=== PATIENT | female | born 1975 | race Caucasian/White ===

== ENCOUNTER 2024-02-13 01:31 | Day surgery (SDC) | payer OTHER, SELFPAY ==
[2024-01-30 12:58] VITALS: BMI 35.4
[2024-02-13 08:53] VITALS: BP 138/71; PULSE 96; RESP 20; TEMP 36.4; O2SAT 100; BMI 34.2
[2024-02-13] MEDS: LACTATED RINGERS 1,000 ML 150 ML IV CONT ×2 (09:10→11:28)
--- NOTE | 2024-02-13 10:01 | WPDANESEPPF ---
Anes - Initial Pre Proc Eval Procedure: Operation Date: 02/13/24 10:00 Proposed Procedures p Esophagogastroduodenoscopy & Colonoscopy - Robel Laird MD Date/Time: 02/13/24 10:01 Surgeon: Robel Laird MD Pre Op Diagnosis: hemorrhage of anus/rectum, dysphagia Patient Data Age: 48 Gender: F Height: 1.75 m Weight: 105.1 kg Last Vital Signs Temp 97.6 F 02/13/24 08:53 Pulse 96 02/13/24 08:53 Resp 20 02/13/24 08:53 BP 138/71 02/13/24 08:53 Pulse Ox 100 02/13/24 08:53 O2 Del Method Room Air 02/13/24 08:53 Allergies Allergy/AdvReac Type Severity Reaction Status Date / Time No Known Allergies Allergy Verified 02/13/24 08:52 Home Medications Medication Instructions Recorded Confirmed Type atorvastatin 10 mg tablet 10 mg PO DAILY 01/30/24 02/13/24 History pantoprazole 40 mg tablet,delayed 40 mg PO DAILY 01/30/24 02/13/24 History release topiramate 50 mg tablet 50 mg PO DAILY PRN MIGRAINES 01/30/24 02/13/24 History Patient hx anesthesia problems: none Family hx anesthesia problems: none Results Review: All pre-operative results and documents have been reviewed as part of the pre-operative evaluation. [facility] Social History Social History Smoking status: Never smoker Alcohol intake: never Substance use: never Substance use type: does not use Living arrangements: with family Spiritual care concerns: No Anes - Eval Final PreProcedure Day of Procedure 02/13/24 10:01 Patient weight: normal Heart: regular rate and rhythm Lungs: clear to auscultation Airway: Mallampati scale class II Neurological: alert and oriented Last oral intake: >/= 8 hours ASA classification: II Emergent: no Anesthetic plan: proceed Anesthesia type and monitoring: general GIVS and standard monitoring Results Review: All pre-operative results and documents have been reviewed as part of the pre-operative evaluation. Hyperlipidemia, dysphagia. Informed Consent: The patient's anesthetic plan and its attendant risks and benefits were discussed with the patient/family/POA. Questions were solicited and answers provided to the satisfaction of the patient/family/POA.
--- NOTE | 2024-02-13 10:40 | PM.IMHP ---
H&P: HPI History of Present Illness Date/Time: 02/13/24 10:40 Chief Complaint: Dysphagia- colon cancer screening. Narrative: This patient has been suffering from intermittent dysphagia exclusively with solid foods for at least 2 years. She denies nausea, vomiting, chest pain or heartburn episodes. In addition, she is due for her 1st screening colonoscopy. Review of Systems Review of Systems: All systems reviewed & are unremarkable except as noted in HPI and below PMFSH Social History Social History Smoking status: Never smoker Alcohol intake: never Substance use: never Substance use type: does not use Living arrangements: with family Spiritual care concerns: No Meds Home Medications and Allergies Home Medications Medication Instructions Recorded Confirmed Type atorvastatin 10 mg tablet 10 mg PO DAILY 01/30/24 02/13/24 History pantoprazole 40 mg tablet,delayed 40 mg PO DAILY 01/30/24 02/13/24 History release topiramate 50 mg tablet 50 mg PO DAILY PRN MIGRAINES 01/30/24 02/13/24 History Allergies Allergy/AdvReac Type Severity Reaction Status Date / Time No Known Allergies Allergy Verified 02/13/24 08:52 Vital Signs Vital Signs - 24 hr 02/13/24 08:53 Temperature 97.6 F Pulse Rate 96 Respiratory Rate 20 Blood Pressure 138/71 Pulse Oximetry 100 Oxygen Delivery Room Air Assessment and Plan Assessment and plan (1) Dysphagia: Code(s): R13.10 - Dysphagia, unspecified Status: Acute Assessment and Plan: The patient is deemed a good candidate for the procedures, both EGD and colonoscopy. Differential diagnosis includes Schatzki's ring, EoE vs motility disorders of the esophagus. Will take esophageal biopsies. Consent signed. Will proceed. (2) Screening for malignant neoplasm of colon: Code(s): Z12.11 - Encounter for screening for malignant neoplasm of colon Status: Acute
--- NOTE | 2024-02-13 11:09 | SUR.OPER ---
EGD: [id number] COLON: [id number]
[2024-02-13 11:31] VITALS: BP 114/77; PULSE 87; RESP 23; O2SAT 98
[2024-02-13] MEDS: SIMETHICONE ORAL SUSPENSION 20 MG/0.3 ML 30 ML BOTTLE 0.6 ML IRRIGATION (11:31)
[2024-02-13 11:41] VITALS: BP 141/96; PULSE 84; RESP 14; O2SAT 100
[2024-02-13 11:51] VITALS: BP 138/98; PULSE 82; RESP 20; O2SAT 98
== END 2024-02-13 12:00 | disposition home or self-care (01) ==
PROVIDERS: PCP Internal Medicine; Referring Provider Internal Medicine; Visit Provider Internal Medicine Gastroenterology
PROC: 0DJ08ZZ Inspection of Upper Intestinal Tract, Via Natural or Artificial Opening Endoscopic (ICD-10-PCS; CPT 43235; principal; 2024-02-13 10:00)
DX: Z12.11 Encounter for screening for malignant neoplasm of colon (principal); K22.2 Esophageal obstruction; K31.7 Polyp of stomach and duodenum; K44.9 Diaphragmatic hernia without obstruction or gangrene
CPT/HCPCS: 43249; 45378; 88305; C1726; J2003; J2704; J7120

== ENCOUNTER 2024-11-20 12:41 | Outpatient (CLI) | payer OTHER, SELFPAY ==
--- NOTE | 2024-11-20 12:30 | ECG_ITS ---
Test Date: 2024-11-20 13:10:07 Measurements Intervals [place] Rate: 86 P: 49 TX: 140 QRS: 3 QRSD: 90 T: 13 QT: 360 QTc: 431 Interpretive Statements SINUS RHYTHM DELAYED PRECORDIAL R/S TRANSITION BASELINE ARTIFACT- I, II, III, AVR, AVL, AVF, V1-V6 BORDERLINE ECG No previous ECG available for comparison Electronically Signed On 11-21-2024 06:29:00 CDT by Edmar Pinto D.O.
--- OUTSIDE RECORDS SUMMARY | 2024-11-20 12:46 | XMS_ITS | Continuity of Care Document ---
Author Organization [facility] Address [address] [place] [address] [place] [address] Phone Care Team Providers Care Horticultural Technical Officer Name Role Phone Kam Graf DO Unavailable Unavailable Advance Directives Directive Yes / No Effective Date File Name No Information Encounters Encounter Description Practice Location Reason(s) For Visit Diagnoses Date Provider Providers Copied on Encounter [facility], [id number] [place] [address] [address], [place], [place], [id number], [place] tel:[phone] [facility] No Information Homar Villegas. [address] [place], [address], [place]. tel: [phone] Family History Family Member Type Diagnosis Age At Onset No Information Payers Payer name Insurance type Covered libertarian ID Authoriza tion(s) Medicaid [facility], [facility] [id number] Social History Type Description Quantity Date Captured Comments Sex Female Smoking Status No Information Chief Complaint And Reason For Visit No Information Reason For Referral Reason For Referral No Information History Of Present Illness Encounter Date Complaint History Of Prese nt Illness No Information Functional Status Date Functional Assessmen t No Information Instructions Date Instruction Additional Infor mation No Information Assessments Type Assessment Date No Information Patient Care Teams Name Effective Dates (start - stop) Status Members No Information
== END 2024-11-20 12:42 | disposition home or self-care (01) ==
LOC: ANHSURGERY 12:43
PROVIDERS: PCP Internal Medicine; Visit Provider Obstetrics & Gynecology
DX: E78.5 Hyperlipidemia, unspecified (principal); N99.85 Post endometrial ablation syndrome
CPT/HCPCS: 36415; 86850; 86900; 86901; 93005

== ENCOUNTER 2024-11-24 00:50 | Day surgery (SDC) | payer OTHER, SELFPAY ==
[2024-11-19 10:00] VITALS: BMI 32.7
--- NOTE | 2024-11-19 10:07 | PC.NURSE ---
Report to the Outpatient Waiting Room, entrance under the green pavilion located off [facility], at time _0800_ on date _[id number]_. Planned Procedure Time: _1000_.? Time changes happen often and if your time is changed the preop area will call you the afternoon before. - You and your visitor will be asked to self-screen and do not enter if you have any COVID symptoms. Please call surgeon if you need to reschedule. - A mask is optional within the hospital at this time. Patients may have clear liquids (water, carbonated beverages, clear teas, apple juice) until 3 hours prior to surgery with a maximum of 20 ounces. - No food from midnight until time of surgery and no smoking, or chewing tobacco (or any form of nicotine). No chewing gum, candy or mints. Take only the following medications with a SIP of water on the morning of surgery: __None DO NOT STOP ANY OF YOUR OTHER PRESCRIPTION MEDICATIONS PRIOR TO SURGERY EXCEPT THE FOLLOWING Hold all vitamins and supplements for 3 days per anesthesiologist. Medications to discontinue per physician Date to take last mgfi__[id number]___ Please no make-up, nail gambian, hairspray, perfume, deodorant, or body powder the day of surgery.? No jewelry (including any body piercings) or valuables the day of surgery, leave them at home.? Please take a shower or bath the night before, or the morning of, surgery with an antibacterial soap.? Wear comfortable, loose fitting clothing.? - Jewelry must be removed prior to entering the operating room.? Rings and piercings that are not removed may be cut off. - The hospital will not accept responsibility for valuables.? - Please leave all valuables, including medications, at home the day of surgery. If you are going home after surgery, a licensed pharmacy delivery driver must drive you home.? - NO public transportation without another adult if you receive anesthesia. - We recommend that an adult stay with you for 24 hours following discharge. - We also recommend that you do not drive, make important decision, drink alcoholic beverages, or take any drugs that were not prescribed by your health care provider for at least 24 hours after your discharge time. Follow any additional instructions given to you from your surgeon. Telephone instructions given to __Tracy___and asked if any additional questions and then verbalized understanding. Patient advised to call surgeon office or pre surgery nurse liaison [phone] if any additional questions.
--- NOTE | 2024-11-23 16:09 | P.HP_ITS ---
H&P: HPI History of Present Illness Date/Time: 11/23/24 16:09 Chief Complaint: AUB Narrative: Kadie is a 49yo [id number], who presents for surgery. She has a h/o ablation, myomectomy, BTL and LEEP all in the past (different times). She reports her cycles have been very irregular since her ablation 15yrs ago. She reports over the last few years though, she spots for a few days, then stops for about a week, then has a normal red blood period and then spots for close to another week after that. She reports cramping during the times of spotting and severe pain during the red blood period. She has to take midol or ibuprofen every 3 hours during the heavier bleeding. She has tried OCPS in the past but it only makes her migraines more severe. She is ready to be done with this pain and bleeding and is interested in a hysterectomy. The OCPs also caused a yeast infection for 6 months straight. She denies any vaginal issues now. She denies any breast issues. She is sexually active w/o issue. She reports a normal h/o pap smears since her leep which is almost 20 years ago. She denies any menopausal symptoms except decreased libido. Normal pap smear 09/2024. [employer] [facility] 10/2024 was normal except for a small fibroid. Review of Systems Constitutional: Constitutional: Denies chills, Denies fever(s) and Denies headache(s) Eyes: Eyes: Denies change in vision ENT: Denies dizziness and Denies headache(s) Cardiovascular: Cardiovascular: Denies chest pain and Denies dyspnea Respiratory: Respiratory: Denies cough and Denies dyspnea Gastrointestinal: Gastrointestinal: Denies abdominal pain and Denies change in stool character Genitourinary: Genitourinary: Reports abnormal menses, Reports pelvic pain, Denies vaginal discharge, Denies vaginal odor and Denies vaginal pruritus Neurologic: Denies dizziness and Denies headache(s) Psychiatric: Psychiatric: Denies anxiety and Denies depression [facility] Past Medical History Medical History (Updated 10/16/24 @ 09:59 by Patty Valle MD) Hyperlipidemia Headache, migraine GERD (gastroesophageal reflux disease) Surgical History Surgical History (Updated 10/16/24 @ 09:17 by Dakota Montero MA) Normal colonoscopy 2024 H/O endoscopy History of endometrial ablation Previous section History of hysterosalpingogram fibroid removal at same time H/O LEEP 1999 Family History Family History (Updated 10/16/24 @ 09:18 by Dakota Montero MA) Grandparent Non Hodgkin's lymphoma Diabetes mellitus Hypertension Heart disease Mother Gallbladder disorder Diabetes mellitus Hypertension Father Diabetes mellitus Social History Social History (Updated 10/16/24 @ 09:19 by Dakota Montero MA) Smoking status: Never smoker Alcohol intake: never Substance use: current Substance use type: marijuana Other substance usage details: rare Do You Feel Safe in your Home?: Yes Lack of Transportation: No Lack of Food: Never True Current Housing: I Have Housing Concerned About Future Housing: No Difficulty Paying Gas/Electric Bills: No Difficulty Paying for Meds: No Currently Unemployed: No Education: Master's Degree or Higher Difficulty w/ Childcare or Family Care: No Living arrangements: with family Occupation/Education: occupation Additional occupation/education comments: [employer] Gender identity (if verbalized by the patient): Female Sexual Orientation (if Verbalized by the Patient): Straight or Heterosexual Spiritual care concerns: No Meds Home Medications and Allergies Home Medications ?Medication ?Instructions ?Recorded ?Confirmed ?Type atorvastatin 10 mg tablet 10 mg PO DAILY 01/30/24 11/19/24 History pantoprazole 40 mg tablet,delayed 40 mg PO DAILY 01/30/24 11/19/24 History release topiramate 50 mg tablet 50 mg PO DAILY PRN MIGRAINES 01/30/24 11/19/24 History famotidine 10 mg tablet 10 mg PO DAILY 04/01/24 11/19/24 History multivitamin 1 tablet PO DAILY 10/16/24 11/19/24 History phentermine 37.5 mg tablet 37.5 mg PO DAILY 10/16/24 11/19/24 History Allergies Allergy/AdvReac Type Severity Reaction Status Date / Time No Known Allergies Allergy Verified 11/19/24 09:58 Exam Const: General: cooperative, healthy appearing, comfortable and no acute distress Orientation/consciousness: patient oriented x3 Resp: Effort & Inspection: normal respiratory effort Cardio: Rate: regular rate GI: Inspection: normal to inspection GI Palp: No abdominal tenderness and Yes Soft to palpation : Other: deferred to OR Skin: General skin exam: normal color Neuro: General: patient oriented x3 Extrem: General: normal to inspection Psych: Appearance: grossly normal Affect: normal affect Attitude: cooperative Assessment and Plan Assessment and plan (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 - I have also discussed the recommended time off and natural course of healing/downtime
[2024-11-24] VITALS (13 sets, daily range): BP systolic 104–153; BP diastolic 54–103; PULSE 85–100; RESP 10–18; TEMP 35.8–36.6; O2SAT 93–100
--- NOTE | 2024-11-24 07:08 | WPDHPUPDATE1 ---
History and Physical Update Update Date/Time: 11/24/24 07:08 History and Physical has been reviewed, including an updated exam of the patient. There are NO changes in the patient's condition. Risks, benefits, and alternatives have been discussed and questions answered. Patient agrees to proceed with robotic assisted total laparoscopic hysterectomy with bilateral salpingectomy and cystoscopy.
[2024-11-24 08:20] LABS: BEDSIDEPREGUCG Negative (Negative)
--- NOTE | 2024-11-24 08:28 | WPDANESEPPF ---
Anes - Initial Pre Proc Eval Procedure: Operation Date: 11/24/24 10:00 Proposed Procedures p Robotic Assisted Total Laparoscopic Hysterectomy with Bilateral Salpingectomy - Patty Valle MD s Cystoscopy - Patty Valle MD Date/Time: 11/24/24 08:28 Surgeon: Patty Valle MD Pre Op Diagnosis: post endometrial ablation syndrome Patient Data Age: 49 Gender: F Height: 1.75 m Weight: 101.2 kg Allergies Allergy/AdvReac Type Severity Reaction Status Date / Time No Known Allergies Allergy Verified 11/24/24 08:11 Home Medications ?Medication ?Instructions ?Recorded ?Confirmed ?Type atorvastatin 10 mg tablet 10 mg PO DAILY 01/30/24 11/24/24 History pantoprazole 40 mg tablet,delayed 40 mg PO DAILY 01/30/24 11/24/24 History release topiramate 50 mg tablet 50 mg PO DAILY PRN MIGRAINES 01/30/24 11/24/24 History famotidine 10 mg tablet 10 mg PO DAILY 04/01/24 11/24/24 History multivitamin 1 tablet PO DAILY 10/16/24 11/24/24 History phentermine 37.5 mg tablet 37.5 mg PO DAILY 10/16/24 11/24/24 History Laboratory Tests 11/24/24 08:18 POC Urine HCG, Qual Negative (Negative) Patient hx anesthesia problems: none Family hx anesthesia problems: none Results Review: All pre-operative results and documents have been reviewed as part of the pre-operative evaluation. [facility] Past Medical History Medical History (Updated 11/24/24 @ 08:15 by Rafa Healy DO) Depression Anxiety Hyperlipidemia GERD (gastroesophageal reflux disease) Headache, migraine Surgical History Surgical History (Updated 10/16/24 @ 09:17 by Dakota Montero MA) Normal colonoscopy 2023 H/O endoscopy History of endometrial ablation History of hysterosalpingogram fibroid removal at same time Previous section H/O LEEP 1999 Family History Family History (Updated 10/16/24 @ 09:18 by Dakota Montero MA) Grandparent Non Hodgkin's lymphoma Diabetes mellitus Hypertension Heart disease Mother Gallbladder disorder Diabetes mellitus Hypertension Father Diabetes mellitus Social History Social History (Updated 10/16/24 @ 09:19 by Dakota Montero MA) Smoking status: Never smoker Alcohol intake: never Substance use: current Substance use type: marijuana Other substance usage details: rare Do You Feel Safe in your Home?: Yes Lack of Transportation: No Lack of Food: Never True Current Housing: I Have Housing Concerned About Future Housing: No Difficulty Paying Gas/Electric Bills: No Difficulty Paying for Meds: No Currently Unemployed: No Education: Master's Degree or Higher Difficulty w/ Childcare or Family Care: No Living arrangements: with family Occupation/Education: occupation Additional occupation/education comments: [employer] Gender identity (if verbalized by the patient): Female Sexual Orientation (if Verbalized by the Patient): Straight or Heterosexual Spiritual care concerns: No Anes - Eval Final PreProcedure Day of Procedure 11/24/24 08:28 Patient weight: obese Heart: regular rate and rhythm Lungs: clear to auscultation Airway: Mallampati scale class III Neurological: alert and oriented Last oral intake: >/= 8 hours ASA classification: III Emergent: no Anesthetic plan: proceed Anesthesia type and monitoring: general ETT and standard monitoring Results Review: All pre-operative results and documents have been reviewed as part of the pre-operative evaluation. Informed Consent: The patient's anesthetic plan and its attendant risks and benefits were discussed with the patient/family/POA. Questions were solicited and answers provided to the satisfaction of the patient/family/POA.
[2024-11-24] MEDS: LACTATED RINGERS 1,000 ML 30 ML IV CONT ×2 (08:33→12:49)
[2024-11-24] MEDS: ACETAMINOPHEN 500 MG TABLET 1000 MG PO ×3 (09:17→22:40)
[2024-11-24] MEDS: KETOROLAC 15 MG/ML VIAL (*BKC) IV PUSH (09:20)
--- NOTE | 2024-11-24 10:17 | SUR.PREOP ---
PATIENT UPDATED ON TIME DELAY
[2024-11-24] MEDS: ceFAZolin 2 GM in SODIUM CHLORIDE 0.9% IV 50 ML 100 ML IVPB (10:37)
[2024-11-24] MEDS: metroNIDAZOLE 500 MG/ISO 100ML 500 MG/100 ML BAG 100 MG IVPB (11:00)
[2024-11-24] MEDS: BUPIVACAINE/EPINEPHRINE 0.5% 50 ML VIAL 30 ML INFILTRATE (11:34)
--- NOTE | 2024-11-24 11:48 | S_PTH ---
PATIENT: Kadie [place] LOC: [facility] U#:[id number] AGE/SX: 49/F ROOM: RE11/24/[address]: Patty Valle MD : 1975 BED: DIS: 11/25/2024 SPEC #: [id number] RECD: 11/24/24 13:21 STATUS: ERICA REQ #: [id number] ASMITA: 11/24/24 11:[address]: Patty Valle DEPT: [facility] Surgical RECD BY: Elise Diaz ENTERED: 11/24/24 13:21 SP TYPE: Surgical OTHR DR: Сергей Neely, Tissues: A - Uterus Procedures: Hematoxylin and Eosin Stain Gross and Microscopic Level 5
--- NOTE | 2024-11-24 12:43 | P.OP_ITS ---
Procedure Note - Detailed Date of Procedure 11/24/24 Pre-op Diagnosis post endometrial ablation syndrome fibroid uterus Post-op Diagnosis Same Procedure Performed Robotic assisted total laparoscopic hysterectomy with left salpingectomy and cystoscopy. Surgeon Patty Valle MD Anesthesia General and Local (12cc of 0.5% marcaine with epi) Findings Uterus sounded to 7cm, cervix 3cm. Anterior fibroid; ~3-4cm. H/o BTL. Normal left ovary and normal partial left tube. Right adnexal cyst; simple appearing; bowel adhered to adnexal/pelvic side wall (no obvious tube noted). Normal bladder w/o defects or masses; bilateral ureteral efflux. Uterus/cervix: 174.4g Description of Procedure Kadie was taken to the operating room where she was placed under general anesthesia without issues. She received 2 g Ancef and 500mg Metronidazole. She was then prepped and draped in the usual sterile fashion in the dorsal lithotomy position with her legs in low Andi stirrups, her arms tucked at her side, with a strap over her chest. A time-out was performed. My attention was turned down below where a pinto catheter was placed. A bivalve speculum was placed within the vagina. The cervix was easily identified and the anterior lip of the cervix was grasped with single-tooth tenaculum. The uterus was then sounded to 7cm. The cervix was serially dilated to allow for the MEGAN uterine manipulator; which was placed w/o issue (6cm tip with 3cm cervical ring). My gl oves were changed and attention was then turned to the abdomen. A 5 mm trocar was placed under direct visualization at Underwood's point without issue. Once intra-abdominal placement was confirmed, the abdomen was insufflated with carbon dioxide gas. An abdominal survey was performed and the above findings were noted. Two additional ports were placed on the right and left side and the camera port was placed supraumbilical under direct visualization without issues. The 5mm port was switched out for the accessory port under direct visualization. The patient was then placed in deep Trendelenburg, with the legs slightly lowered. The robot was then docked. The instruments were placed intra- abdominally under direct visualization. I then un-scrubbed and went to the robotic console. I then started my hysterectomy on the right side. The ureter was easily identified transperitoneally and well out of the surgical field. The bowel adhesions to the right adnexal were carefully taken down (thin, filmy adhesions). The right ovary was still adhered to the pelvic side wall; no obvious fallopian tube segment was visualized. The round ligament was clamped, coagulated, and transected. The uterine ovarian artery was then serially clamped, coagulated, and transected with good hemostasis. The broad ligament was then dissected anteriorly and posteriorly skeletonizing the uterine artery. The bladder flap was then developed on the right side and carried around the left, anteriorly. The uterine artery was then serially clamped and coagulated. Once the vessel was adequately coagulated, it was then transected with good hemostasis. The same procedure was then performed on the left side without complications. The uterus was noted to be devascularized. The bladder flap was verified out of the surgical field and the colpotomy was started anteriorly and continued in a clockwise fashion until the uterus was released. The uterus was removed from the abdomen via the vagina without complications. The vaginal cuff had small bleeders that were made hemostatic without complications. The vaginal cuff was then reapproximated using a 0 V lock suture. The pelvis was then irrigated and suctioned free of all clots and debris. Surgicel powder was then placed over the raw edges/pedicles. Good hemostasis was noted. The left fallopian tube was elevated and the mesosalpinx was coagulated and transected until the tube was freed and removed from the abdomen. All instruments were removed from the abdomen and the robot was undocked. I then scrubbed back in and verified that the cuff was intact without any defects. The Pinto catheter was then removed. The cystoscope was placed within the bladder, which filled without difficulty. Bilateral ureteral efflux was noted. The bladder was examined and no defects or abnormalities were visualized. The bladder was drained. The cystoscope was removed. The pinto catheter was replaced under aseptic technique. The 4 laparoscopic incisions were reapproximated using 4-0 Monocryl and covered with Dermabond. The laparoscopic incisions were infiltrated with local anesthesia for better pain control. Sponge, lap, instrument, and needle counts were correct at the end the procedure. Patient was awoken from general anesthesia and taken to recovery in a stable conditions with plans of overnight stay. Estimated Blood Loss 100 IV Fluids 1,300 Urine Output 300 Pathology Yes (uterus, cervix, left fallopian tubes) Complications No immediate complications Condition Stable Disposition Floor [facility] Billing Surgery - Charge Forward: Surgery Billing
--- NOTE | 2024-11-24 14:28 | PC.NURSE ---
This patient, Kadie [place], was received from PACU on 11/24/24 at 1422. Patient/family oriented to unit policies and routines
[2024-11-24] MEDS: DEXTROSE 5%/LACTATED RINGERS 1,000 ML 125 ML IV CONT (14:49)
[2024-11-24] MEDS: SIMETHICONE 80 MG TAB.CHEW PO (14:55)
[2024-11-24] MEDS: ONDANSETRON INJ 4 MG/2 ML VIAL IV PUSH (14:55)
[2024-11-24] MEDS: KETOROLAC 30 MG/ML VIAL (*BKC) IV PUSH ×2 (17:01→22:41)
[2024-11-24] MEDS: DOCUSATE SODIUM 100 MG CAPSULE PO (17:01)
[2024-11-24] MEDS: PROMETHAZINE HCL 25 MG/ML AMPUL 12.5 MG IV PUSH (18:00)
[2024-11-25 03:59] VITALS: BP 122/76; PULSE 85; RESP 18; TEMP 36.4; O2SAT 99
[2024-11-25] MEDS: ACETAMINOPHEN 500 MG TABLET 1000 MG PO (04:47)
[2024-11-25] MEDS: KETOROLAC 30 MG/ML VIAL (*BKC) IV PUSH (04:47)
[2024-11-25 06:03] LABS: Hematocrit 38.5 % (37.0-47.0); Hemoglobin 12.1 g/dL (12.0-15.0); Immature Granulocyte Percent A 0.6 % (0-0.5); Lymphocytes Absolute Auto 1.32 K/mm3 (0.9-3.2); Mean Corpuscular HGB Conc 31.4 g/dl (32-36); Mean Corpuscular Hemoglobin 27.3 pg (26-34); Mean Corpuscular Volume 86.7 fl (80-100); Nucleated Red Blood Cells Absolute Auto 0.000 K/mm3 (0.0-0.012); Nucleated Red Blood Cells Perc 0.0 % (0.0-0.2); Platelet Count Result 208 k/mm3 (150-375); Red Blood Count 4.44 M/mm3 (4.2-5.4); White Blood Count 19.4 K/mm3 (4.5-10.0)
[2024-11-25 06:15] LABS: Anion Gap 8 mmol/L (4-12); Blood Urea Nitrogen 10 mg/dL (7-17); Calcium 9.4 mg/dL (8.4-10.2); Carbon Dioxide 22 mmol/L (22-30); Chloride 109 mmol/L (98-107); Estimated CRCL calculation 104 ml/min; Estimated Glomerular Filt Rate > 60; Glucose 108 mg/dL (65-110); Potassium 3.8 mmol/L (3.4-5.0); Sodium 139 mmol/L (137-145)
--- NOTE | 2024-11-25 06:53 | P.PNOB_ITS ---
[facility] - A/P Assessment and plan (1) S/P laparoscopic hysterectomy: Code(s): Z90.710 - Acquired absence of both cervix and uterus Status: Acute Postoperative Procedures: Procedures Operation Date: 11/24/24 10:00 Actual Procedure Side Surgeon p Robotic Assisted Total Laparoscopic Hysterectomy with Left Salpingectomy Left Patty Valle MD s Cystoscopy Not Applicable Patty Valle MD Postoperative day: 1 Postoperative status: doing well Postoperative plan: routine post-op care and discharge Time Spent With Patient Time: Total time spent is greater than 50% in coordination of care (as documented) at patient's floor/unit and/or counseling patient: Time with patient: less than 15 minutes [facility]- PN:Subj Post-Op Subjective Date/time seen: 11/25/24 07:10 Interval history: POD#1 Kadie reports doing well today. No issues overnight. Her pain is controlled with PO meds. She has tolerated regular diet, but had multiple episodes of N/V after surgery (phenergan helped). She denies any vaginal bleeding. She has voided. She has passed flatus. She has ambulated and denies any symptoms of anemia. Review of Systems 2 Review of Systems: All systems reviewed & are unremarkable except as noted in HPI and below (HPI) Constitutional: Constitutional: Denies chills, Denies fever(s) and Denies headache(s) Eyes: Eyes: Denies change in vision ENT: Denies dizziness and Denies headache(s) Cardiovascular: Cardiovascular: Denies chest pain and Denies rapid heart rate Respiratory: Respiratory: Denies cough Genitourinary: Genitourinary: Denies abnormal vaginal bleeding Neurologic: Denies dizziness and Denies headache(s) Exam 2 Const: General: cooperative, healthy appearing, comfortable and no acute distress Orientation/consciousness: patient oriented x3 Resp: Effort & Inspection: normal respiratory effort Auscultation: clear to auscultation bilaterally Cardio: Rate: regular rate GI: Inspection: normal to inspection and incision ( LSC incisions c/d/i) GI Palp: Yes abdominal tenderness (appropriate) and Yes Soft to palpation A uscultation: normal bowel sounds : Other: normal bleeding on pad Skin: General skin exam: normal color Neuro: General: patient oriented x3 Psych: Appearance: grossly normal Affect: normal affect Attitude: c ooperative [facility] - PN: Obj Data Vital Signs Vital Signs: Vital Signs - 24 hr 11/24/24 08:10 11/24/24 12:49 11/24/24 13:05 Temperature 97.6 F 97.4 F L Pulse Rate 100 92 91 Respiratory Rate 18 12 12 Blood Pressure 152/103 H 109/70 104/54 L Pulse Oximetry 97 99 99 Oxygen Delivery Room Air Simple Face Mask Simple Face Mask Oxygen Flow Rate 8 8 11/24/24 13:20 11/24/24 13:35 11/24/24 13:50 Temperature Pulse Rate 91 89 85 Respiratory Rate 12 12 12 Blood Pressure 104/59 L 105/58 L 108/64 Pulse Oximetry 95 97 94 Oxygen Delivery Room Air Room Air Room Air Oxygen Flow Rate 11/24/24 14:05 11/24/24 14:30 Temperature 96.5 F L Pulse Rate 98 90 Respiratory Rate 18 12 Blood Pressure 111/61 126/77 Pulse Oximetry 94 93 Oxygen Delivery Room Air Oxygen Flow Rate Intake/Output Intake/Output: Intake & Output 11/21/24 11/22/24 11/23/24 11/24/24 23:59 23:59 23:59 23:59 Intake Total 3150 Output Total 530 Balance 2620 Meds/Results Medications: Active Medications Generic Name Dose Route Start Last Admin Trade Name Freq PRN Reason Stop Dose Admin Acetaminophen 1,000 mg 11/24/24 18:00 Acetaminophen 500 Mg Tablet PO Q6HR [facility] Atorvastatin Calcium 10 mg 11/25/24 09:00 Atorvastatin 10 Mg Tablet PO DAILY [facility] Docusate Sodium 100 mg 11/24/24 17:00 Docusate Sodium 100 Mg Capsule PO BID [facility] Famotidine 10 mg 11/25/24 09:00 Famotidine 10 Mg Tablet PO DAILY [facility] Hydromorphone HCl 0.5 mg 11/24/24 14:14 Hydromorphone Hcl Inj (*Crx) 1 Mg/Ml Syr IV PUSH Q2H PRN Breakthrough Pain Rated 4-6 or NPO Dextrose/Lactated Ringer's 1,000 mls @ 125 mls/hr 11/24/24 14:14 Dextrose 5%/Lactated Ringers IV CONT .Q8H [facility] Ibuprofen 600 mg 11/25/24 12:00 Ibuprofen 600 Mg Tablet PO Q6HR [facility] Ketorolac Tromethamine 30 mg 11/24/24 18:00 Ketorolac 30 Mg/Ml Vial (*Bkc) IV PUSH 11/25/24 06:01 Q6HR [facility] Multivitamins Therapeutic 1 tablet 11/25/24 09:00 Multivitamins Therapeutic Tab (*Bkc) PO DAILY [facility] Naloxone HCl 0.1 mg 11/24/24 14:14 Naloxone Hcl 0.4 Mg/Ml Vial IV PUSH Q2M PRN Respiratory rate less than 10 Ondansetron HCl 4 mg 11/24/24 14:14 Ondansetron Inj 4 Mg/2 Ml Vial IV PUSH Q6H PRN Nausea And Vomiting Oxycodone HCl 5 mg 11/24/24 14:14 Oxycodone Hcl (*Crx) 5 Mg Tab Ir PO Q4H PRN Pain Rated 4-6 Oxycodone HCl 10 mg 11/24/24 14:14 Oxycodone Hcl (*Crx) 5 Mg Tab Ir PO Q6H PRN Pain Rated 7-10 Pantoprazole Sodium 40 mg 11/25/24 09:00 Pantoprazole 40 Mg Tablet PO DAILY [facility] Simethicone 80 mg 11/24/24 17:00 Simethicone 80 Mg Tab.Chew PO TIDWM [facility] Topiramate 50 mg 11/24/24 14:14 Topiramate 25 Mg Tablet PO DAILY [facility]N [facility] Labs 11/25/24 04:53 11/25/24 04:53 Labs: Laboratory Results - last 24 hr 11/24/24 08:18 POC Urine HCG, Qual Negative
[2024-11-25 07:55] VITALS: BP 125/70; PULSE 82; RESP 18; TEMP 36.4; O2SAT 100
[2024-11-25] MEDS: SIMETHICONE 80 MG TAB.CHEW PO (08:45)
[2024-11-25] MEDS: PANTOPRAZOLE 40 MG TABLET PO (08:45)
[2024-11-25] MEDS: FAMOTIDINE 10 MG TABLET PO (08:45)
[2024-11-25] MEDS: DOCUSATE SODIUM 100 MG CAPSULE PO (08:45)
[2024-11-25] MEDS: ATORVASTATIN 10 MG TABLET PO (08:48)
== END 2024-11-25 11:09 | disposition home or self-care (01) ==
LOC: ANHSURGERY 07:47 → ANHOB2 14:24
PROVIDERS: PCP Internal Medicine; Visit Provider Obstetrics & Gynecology
PROC: (CPT 58571; principal; 2024-11-24 10:00)
PROC: 0TJB8ZZ Inspection of Bladder, Via Natural or Artificial Opening Endoscopic (ICD-10-PCS; CPT 52000; 2024-11-24 10:00)
DX: N99.85 Post endometrial ablation syndrome (principal); D25.9 Leiomyoma of uterus, unspecified; F12.90 Cannabis use, unspecified, uncomplicated; E66.9 Obesity, unspecified; Z68.32 Body mass index [BMI] 32.0-32.9, adult
CPT/HCPCS: 58571; S2900; 36415; 80048; 85025; 88307; 99199; J0690; A9270; J1100; J1171; J1836; J1885; J2003; J2250; J2405; J2550; J2704; J3010; J7030; J7120; J7121